=== PATIENT | male | born 1980 | race Caucasian/White ===

== ENCOUNTER 2017-10-02 02:29 | Inpatient (IN) | payer SELFPAY ==
[~2017-10-02] VITALS: Ht 190.5 cm; Wt 139.0 kg
[2017-10-02] VITALS (7 sets, daily range): BP systolic 160–194; BP diastolic 74–87; PULSE 78–96; RESP 18–20; TEMP 97.1–100.7; O2SAT 96–97
[~2017-10-02 02:29] MED LIST: CLIN1CAP5 PO; GLUC10TA3 PO; HUMSS SQ; LANTUS2P SC; LISI-363 PO; LOPI600T PO; METF-324 PO; MUPI2%T TOP; SM A81CH CHEW; TRAM50 PO
[2017-10-02] MEDS ORDERED: CLINDAMYCIN INJ 900 MG in SODIUM CHLORIDE 0.9% INJ 100 ML IV ONE (04:15)
[2017-10-02] MEDS ORDERED: ACETAMINOPHEN 325 MG TAB PO ONE (04:15)
[2017-10-02] MEDS ORDERED: KETOROLAC TROMETHAMINE 30 MG/ML (IVP) VIAL IV PUSH ONE (04:15)
[2017-10-02] MEDS ORDERED: SODIUM CHLOR 0.9% 1000 ML INJ 1,000 ML IV ONE (04:15)
[2017-10-02 04:35] LABS: AUTOMATED NEUTROPHIL # 5.7 TH/MM3 (1.8-7.7); BASOPHIL # 0.4 TH/MM3 (0-0.2); BASOPHIL % 4.5 % (0.0-2.0); EOSINOPHIL # 0.1 TH/MM3 (0-0.4); EOSINOPHIL % 1.1 % (0.0-4.0); HEMATOCRIT 42.3 % (39.0-51.0); HEMOGLOBIN 14.5 GM/DL (13.0-17.0); LYMPH % 14.5 % (9.0-44.0); LYMPHOCYTE # 1.1 TH/MM3 (1.0-4.8); MEAN CELL VOLUME 79.8 FL (80.0-100.0); MEAN CORPUSCULAR HEMOGLOBIN 27.4 PG (27.0-34.0); MEAN CORPUSCULAR HGB CONC 34.3 % (32.0-36.0); MEAN PLATELET VOLUME 8.2 FL (7.0-11.0); MONO % 6.7 % (0.0-8.0); MONOCYTE # 0.5 TH/MM3 (0-0.9); NEUT % 73.2 % (16.0-70.0); PLATELET COUNT 268 TH/MM3 (150-450); WHITE BLOOD COUNT 7.8 TH/MM3 (4.0-11.0)
[2017-10-02 04:42] LABS: BILIRUBIN, URINE NEG (NEG); BLOOD, URINE TRACE (NEG); GLUCOSE,URINE 1000 OR GREATER mg/dL (NEG); KETONE, URINE 80 OR GREATER mg/dL (NEG); NITRITE,URINE NEG (NEG); PH, URINE 5.5 (5.0-8.5); URINE COLOR YELLOW (YELLW/STRAW); URINE LEUKOCYTE ESTERASE NEG (NEG)
[2017-10-02 04:53] LABS: RBC, URINE 0-3 /hpf (0-3); SQUAMOUS EPITHELIAL CELL URINE 0-5 /hpf (0-5); WBC, URINE 0-2 /hpf (0-5)
[2017-10-02 05:38] LABS: BICARBONATE 23.8 MEQ/L (21.0-32.0); CALCIUM 8.7 MG/DL (8.5-10.1); CREATININE 0.78 MG/DL (0.60-1.30)
--- NOTE | 2017-10-02 05:38 | PD ---
HPI Chief Complaint: Skin Problem Time Seen by Provider: 04:02 Travel History International Travel<30 days: No Contact w/Intl Traveler<30days: No Traveled to known affect area: No History of Present Illness HPI 37-year-old male presents to the emergency department for 4 days of redness and swelling of the left upper extremity. Patient states he has had drainage from the left lower forearm 2 days. Patient thinks he has felt warm but has not had chills. Patient has history of diabetes. Patient has not been on medication for several months. Patient has had no nausea vomiting. Patient has not noticed any axillary tenderness or lymphadenopathy. Patient has multiple areas over his skin that show pustules and small scabbed areas associated with hair follicles. Patient denies any puncture wound. Patient denies injecting anything in the forearm. Patient rates pain at 10/10. Patient notes to palpation of the arm or touching the wound site worsens pain patient states he cannot identify alleviating factors. Patient has been covering the sites with Band-Aids and today when he pulled the Band-Aid off he noted some drainage from the site. Patient decided to come to the emergency room at that time. [facility] Past Medical History Narrative Medical Hypertension diabetes recurrent abscesses cellulitis pancreatitis MRSA; nursing notes reviewed Arthritis: No Asthma: No Heart Rhythm Problems: No Cancer: No Cardiovascular Problems: Yes (HTN) High Cholesterol: No Chest Pain: No Congestive Heart Failure: No COPD: No Cerebrovascular Accident: No Diabetes: Yes Patient Takes Glucophage: No Diminished Hearing: No GERD: Yes Headaches: Yes (NEW) Hepatitis: No Hiatal Hernia: No Hypertension: Yes Immune Disorder: No Kidney Stones: No Musculoskeletal: Yes (MRSA) Psychiatric: No Respiratory: Yes (SINUS TROUBLES) Immunizations Current: No Migraines: No Myocardial Infarction: No Renal Failure: No Seizures: No Sleep Apnea: No Ulcer: No Tetanus Vaccination: > 5 Years Past Surgical History Surgical History: No Previous Surgery Abdominal Surgery: No Appendectomy: No Cardiac Surgery: No Cholecystectomy: No Ear Surgery: No Endocrine Surgery: No Eye Surgery: No Genitourinary Surgery: No Gynecologic Surgery: No Oral Surgery: No Thoracic Surgery: No Social History Alcohol Use: Yes Tobacco Use: No Substance Use: No Allergies-Medications (Allergen,Severity, Reaction): Coded Allergies: hydromorphone (Unverified Allergy, Severe, Headache, 12/21/16) PER PT "IT CAUSES A MARCHING BAND HEADACHE." *MDRO Multi-Drug Resistant Organism (Verified Allergy, Unknown, 05/21/14) MRSA 05/2013 Reported Meds & Prescriptions Reported Meds & Active Scripts Active Reported Humalog (Insulin Human Lispro) 100 Unit/Ml Inj 60 Units SQ BIDAC Lantus (Insulin Glargine) 100 Units/Ml Inj 90 Unit SC HS Lopid (Gemfibrozil) 600 Mg Tab 600 Mg PO BIDAC Lisinopril 20 mg (Lisinopril) 20 Mg Tab 20 Mg PO BID Aspirin 81 Mg Tab 81 Mg CHEW DAILY Glipizide 10 Mg Tab 10 Mg PO BID Metformin ER 24 HR (Metformin HCl) 1,000 Mg Tab 1,000 Mg PO BID Start again on 02/10/2013 at 5 pm. Narrative Medication (NOT TAKING; OUT OF ALL MEDS) Review of Systems Except as stated in HPI: all other systems reviewed are Neg General / Constitutional: No: Fever, Chills HENT: No: Congestion Cardiovascular: No: Chest Pain or Discomfort Respiratory: No: Shortness of Breath Gastrointestinal: No: Vomiting, Abdominal Pain Genitourinary: Positive: Frequency, No: Dysuria Musculoskeletal: Positive: Pain (left FA), No: Myalgias, Arthralgias Neurologic: No: Weakness, Dizziness Psychiatric: No: Anxiety Endocrine: Positive: Polyuria, Polydipsia Hematologic/Lymphatic: No: Lymph Node Enlargement Physical Exam Narrative GENERAL: Well-developed well-nourished male no acute distress no respiratory distress SKIN: Warm and dry. HEAD: Normocephalic. EYES: No scleral icterus. No injection or drainage. NECK: Supple, trachea midline. No JVD or lymphadenopathy. CARDIOVASCULAR: Regular rate and rhythm without murmurs, gallops, or rubs. RESPIRATORY: Breath sounds equal bilaterally. No accessory muscle use. GASTROINTESTINAL: Abdomen soft, non-tender, nondistended. MUSCULOSKELETAL: No cyanosis, or edema. Attention left upper extremity distal forearm volar aspect area of erythema 7 cm x 7 cm with central induration 2 cm x 1 cm in central cavitary lesion with copious purulent drainage. Distal extremities neurovascular tendon intact capillary refill is less than 2 seconds BACK: Nontender without obvious deformity. No CVA tenderness. Data Data Last Documented VS Vital Signs Date Time Temp Pulse Resp B/P (MAP) Pulse Ox O2 Delivery O2 Flow Rate FiO2 10/02/17 05:24 99.3 96 18 194/87 (122) 96 Room Air Orders Orders Basic Metabolic Panel (Bmp) (10/02/17 04:02) Complete Blood Count With Diff (10/02/17 04:02) Blood Culture (10/02/17 04:02) Wound Culture And Gram Stain (10/02/17 04:02) Iv Access Insert/Monitor (10/02/17 04:02) Wound Care (10/02/17 04:02) Clindamycin Inj (Cleocin Inj) (10/02/17 04:15) Sodium Chlor 0.9% 1000 Ml Inj (Ns 1000 M (10/02/17 04:15) Beta Hydroxybutyrate (Acetone) (10/02/17 04:02) Urinalysis - C+S If Indicated (10/02/17 04:02) Acetaminophen (Tylenol) (10/02/17 04:15) Ketorolac Inj (Toradol Inj) (10/02/17 04:15) Clonidine (Catapres) (10/02/17 06:00) Insulin Human Regular Inj (Novolin R Inj (10/02/17 06:00) Blood Glucose (10/02/17 05:49) Lidocaine Pf 1% Inj (Xylocaine-Mpf 1% In (10/02/17 06:00) Lidocaine Pf 1% Inj (Xylocaine-Mpf 1% In (10/02/17 06:01) Clindamycin 900 Mg/Ns Premix (Cleocin 90 (10/02/17 14:00) Ceftriaxone Inj (Rocephin Inj) (10/02/17 08:00) Admit To Inpatient (10/02/17 ) Vital Signs (Adult) Q4H (10/02/17 06:11) Activity Oob Ad Renu (10/02/17 06:11) Gymnasium [employer] / Telemetry .CONTINUOUS (10/02/17 06:11) Intake + Output KIERSTEN.QSHIFT (10/02/17 06:11) Diet 1800 Ada Cons Carb (10/02/17 Breakfast) Sodium Chlor 0.9% 1000 Ml Inj (Ns 1000 M (10/02/17 06:11) Sodium Chloride 0.9% Flush (Ns Flush) (10/02/17 06:15) Sodium Chloride 0.9% Flush (Ns Flush) (10/02/17 09:00) Comprehensive Metabolic Panel (10/03/17 06:00) Complete Blood Count With Diff (10/03/17 06:00) Scd Bilateral/Knee High KIERSTEN.BID (10/02/17 06:11) Billy Bilateral/Knee High KIERSTEN.QSHIFT (10/02/17 07:00) Acetaminophen (Tylenol) (10/02/17 06:15) Acetamin-Hydrocod 325-5 Mg (Rifton 5-325 (10/02/17 06:15) Acetamin-Hydrocod 325-10 Mg ([place] 10-32 (10/02/17 06:15) Docusate Sodium-Senna (Ivana-Colace) (10/02/17 09:00) Magnesium Hydroxide Liq (Milk Of Magnesi (10/02/17 06:15) Sennosides (Senokot) (10/02/17 06:15) Bisacodyl Supp (Dulcolax Supp) (10/02/17 06:15) Lactulose Liq (Lactulose Liq) (10/02/17 06:15) Inpatient Certification (10/02/17 ) Bedside Glucose KIERSTEN.CSUGAR (10/02/17 06:11) Blood Glucose Goal (Criteria) (10/02/17 06:11) Hypoglycemia 70 Mg/Dl Or < (10/02/17 06:11) Notify Dr: Other (10/02/17 06:11) Dextrose 50% In Jose G (Vial) Inj (D50w (Vi (10/02/17 06:15) Glucagon Inj (Glucagon Inj) (10/02/17 06:15) Insulin Aspart Supplemtl Scale (Novolog (10/02/17 08:00) Metoprolol Tartrate (Lopressor) (10/02/17 06:15) Admit Order (Ed Use Only) (10/02/17 ) Vital Signs (Adult) Q4H (10/02/17 06:19) Diet 1999 Ada Cons Carb (10/02/17 Breakfast) Activity Oob With Assistance (10/02/17 06:19) Notify Dr: Other (10/02/17 06:19) Labs Laboratory Tests Test 10/02/17 04:00 10/02/17 04:25 White Blood Count 7.8 TH/MM3 Red Blood Count 5.30 MIL/MM3 Hemoglobin 14.5 GM/DL Hematocrit 42.3 % Mean Corpuscular Volume 79.8 FL Mean Corpuscular Hemoglobin 27.4 PG Mean Corpuscular Hemoglobin Concent 34.3 % Red Cell Distribution Width 12.0 % Platelet Count 268 TH/MM3 Mean Platelet Volume 8.2 FL Neutrophils (%) (Auto) 73.2 % Lymphocytes (%) (Auto) 14.5 % Monocytes (%) (Auto) 6.7 % Eosinophils (%) (Auto) 1.1 % Basophils (%) (Auto) 4.5 % Neutrophils # (Auto) 5.7 TH/MM3 Lymphocytes # (Auto) 1.1 TH/MM3 Monocytes # (Auto) 0.5 TH/MM3 Eosinophils # (Auto) 0.1 TH/MM3 Basophils # (Auto) 0.4 TH/MM3 CBC Comment AUTO DIFF Differential Comment AUTO DIFF CONFIRMED Platelet Estimate NORMAL Platelet Morphology Comment NORMAL Blood Urea Nitrogen 13 MG/DL Creatinine 0.78 MG/DL Random Glucose 362 MG/DL Calcium Level 8.7 MG/DL Sodium Level 134 MEQ/L Potassium Level 4.0 MEQ/L Chloride Level 97 MEQ/L Carbon Dioxide Level 23.8 MEQ/L Anion Gap 13 MEQ/L Estimat Glomerular Filtration Rate 111 ML/MIN B-Hydroxybutyrate 1.94 MMOL/L Urine Color YELLOW Urine Turbidity CLEAR Urine pH 5.5 Urine Specific [place] 1.015 Urine Protein NEG mg/dL Urine Glucose (UA) 1000 OR GREATER mg/dL Urine Ketones 80 OR GREATER mg/dL Urine Occult Blood TRACE Urine Nitrite NEG Urine Bilirubin NEG Urine Urobilinogen 0.2 MG/DL Urine Leukocyte Esterase NEG Urine RBC 0-3 /hpf Urine WBC 0-2 /hpf Urine Squamous Epithelial Cells 0-5 /hpf Urine Bacteria NONE /hpf Microscopic Urinalysis Comment CULT NOT INDICATED MDM Medical Decision Making Medical Screen Exam Complete: Yes Emergency Medical Condition: Yes Medical Record Reviewed: Yes Interpretation(s) CBC & BMP Diagram 10/02/17 04:00 Calcium Level 8.7 Vital Signs Date Time Temp Pulse Resp B/P (MAP) Pulse Ox O2 Delivery O2 Flow Rate FiO2 10/02/17 05:24 99.3 96 18 194/87 (122) 96 Room Air 5/27/18 03:51 90 10/02/17 03:36 100.7 90 18 185/84 (117) 97 10/02/17 02:36 100.7 90 18 185/87 (119) 97 BHB: 1.94, elevated UA: positive glucose positive ketones Differential Diagnosis Cellulitis abscess tenosynovitis compartment syndrome uncontrolled diabetes DKA Narrative Course IV access obtained specimens collected and sent for resulting patient administered clindamycin 900 mg IV piggyback Toradol 30 mg IV patient had blood cultures obtained lactic acid collected and specimen for wound culture and sensitivity obtained. CBC is automated differential grossly normal range metabolic panel remarkable for glucose of 362 patient has received IV fluid bolus will be given insulin regular 6 units IV 1 dose also beta hydroxybutyric acid is elevated at 1.94 however bicarb is in normal range and anion gap is not elevated Patient resting comfortably discussed with patient I&D of abscess site to which he agrees after discussing risk benefit from verbal consent. discussed with [facility] service -- admit Procedures Procedure Narrative After the risks and benefits were discussed the following procedure was performed: INCISION AND DRAINAGE OF ABSCESS: The area was prepped and was sterilely draped. A subcutaneous wheal of 1 % Xylocaine with a total number 3 mL was used to anesthetize the area. The area was properly anesthetized. A number 11 scalpel was used to make a 1 -cm incision across the area of the abscess. Cultures were obtained. The abscess was drained an irrigated with normal saline. Quarter inch iodoform packing was placed in the wound. Sterile dressing applied. Patient advised to have packing removed in two days. Sepsis Criteria SIRS Criteria (2 or more): Heart rate over 90 Sepsis Criteria (SIRS+source): Infect source susp/known (LUE abscess/cellulitis ) Physician Communication Physician Communication discussed with Dr Carranza --admit to her service Diagnosis Primary Impression: Cellulitis of left upper extremity Additional Impressions: Abscess of forearm, left Poorly controlled diabetes mellitus Admitting Information Admitting Physician Requests: Admit Alie Salamanca MD October 02, 2017 05:38
[2017-10-02] MEDS ORDERED: LIDOCAINE HCL 1% PF 10 ML VIAL INFIL ONE (06:00)
[2017-10-02] MEDS ORDERED: INSULIN HUMAN REGULAR 1,000 UNITS/10 ML VIAL IV PUSH ONE (06:00)
[2017-10-02] MEDS ORDERED: cloNIDine HCL 0.1 MG TAB PO ONE (06:00)
[2017-10-02] MEDS ORDERED: LIDOCAINE HCL 1% PF 10 ML VIAL ONE (06:01)
[2017-10-02] MEDS ORDERED: SODIUM CHLOR 0.9% 1000 ML INJ 1,000 ML IV SCH (06:11)
[2017-10-02] MEDS ORDERED: LACTULOSE SYRUP 20 GM/30 ML CUP PO PRN (06:15)
[2017-10-02] MEDS ORDERED: DEXTROSE 50% IN WATER 50 ML VIAL(D50) IV PUSH PRN (06:15)
[2017-10-02] MEDS ORDERED: ACETAMINOPHEN/HYDROcodone 325 MG/5 MG TAB PO PRN (06:15)
[2017-10-02] MEDS ORDERED: SODIUM CHLORIDE 0.9% FLUSH 10 ML FLUSH IV FLUSH PRN (06:15)
[2017-10-02] MEDS ORDERED: SENNOSIDES 8.6 MG TAB PO PRN (06:15)
[2017-10-02] MEDS ORDERED: METOPROLOL TARTRATE 50 MG TAB PO ONE (06:15)
[2017-10-02] MEDS ORDERED: MAGNESIUM HYDROXIDE SUSP 30 ML CUP PO PRN (06:15)
[2017-10-02] MEDS ORDERED: ACETAMINOPHEN/HYDROcodone 325 MG/10 MG TAB PO PRN (06:15)
[2017-10-02] MEDS ORDERED: GLUCAGON 1 MG/ML VIAL OTHER PRN (06:15)
[2017-10-02] MEDS ORDERED: BISACODYL 10 MG SUPP RECTAL PRN (06:15)
[2017-10-02] MEDS ORDERED: ACETAMINOPHEN 325 MG TAB PO PRN (06:15)
[2017-10-02] MEDS ORDERED: cefTRIAXone INJ 1,000 MG in SODIUM CHLORIDE 0.9% INJ 100 ML IV SCH (08:00)
[2017-10-02] MEDS ORDERED: DOCUSATE SODIUM 50 MG/SENNA 8.6 MG TAB PO SCH (09:00)
[2017-10-02] MEDS ORDERED: SODIUM CHLORIDE 0.9% FLUSH 10 ML FLUSH IV FLUSH SCH (09:00)
[2017-10-02] MEDS: INSULIN ASPART SUPPLEMENTAL SCALE SQ SCH ×2 (09:41→12:00)
--- NOTE | 2017-10-02 10:35 | HHI.HP ---
[facility] Primary Care Physician Admission Diagnosis cellulitis abscess/ L UE; DM; sirs Diagnoses: (1) Cellulitis of left upper extremity Diagnosis: Principal (2) Poorly controlled diabetes mellitus Diagnosis: Principal (3) Hypertension Diagnosis: Principal Chief Complaint: Left arm swelling and pain Travel History International Travel<30 Days: No Contact w/Intl Traveler <30 Da: No Traveled to Known Affected Are: No History of Present Illness Written by Rigoberto Merino, acting as scribe for Dr. Valdovinos on 10/02/17 at 10: 33. 37-year-old male with known history of hypertension, hyperlipidemia, diabetes who is not compliant with his medications for the last 3-1/2 month because of financial/insurance reasons. Patient just moved back down here to take care of his father who is not doing well and he has been unsuccessful in getting Medicaid in [place] and he is not taking any medications for 3-1/2 months. On Tuesday of this week he started noticing a sore on his left forearm just above his wrist in which he does not know how it developed. Denies any insect bites, hitting it on anything, and he scratches or wounds. It progressively got worse and started draining. When his hand got severely edematous and he could barely move it he came to the emergency department for evaluation. ER physician did do incision and drainage. Since then the patient states that it is significantly improved. Patient denies any fever, chills, abdominal pain, nausea, vomiting, chest pain, shortness of breath. It was recommended by the ER physician the patient be observed in the hospital for further evaluation and management. Review of Systems Integumentary: COMPLAINS OF: Abnormal pigmentation Except as stated in HPI: all other systems reviewed are Neg Past Family Social History Past Medical History Hypertension Hyperlipidemia Diabetes Past Surgical History Patient denies any previous surgeries Reported Medications Patient is not taking any medications for 3-1/2 months But previously he was on Humalog (Insulin Human Lispro) 100 Unit/Ml Inj 60 Units SQ BIDAC Lantus (Insulin Glargine) 100 Units/Ml Inj 90 Unit SC HS Lopid (Gemfibrozil) 600 Mg Tab 600 Mg PO BIDAC Lisinopril 20 mg (Lisinopril) 20 Mg Tab 20 Mg PO BID Aspirin 81 Mg Tab 81 Mg CHEW DAILY Glipizide 10 Mg Tab 10 Mg PO BID Metformin ER 24 HR (Metformin HCl) 1,000 Mg Tab 1,000 Mg PO BID Start again on 02/10/2013 at 5 pm. Allergies: Coded Allergies: hydromorphone (Unverified Allergy, Severe, Headache, 12/21/16) PER PT "IT CAUSES A MARCHING BAND HEADACHE." *MDRO Multi-Drug Resistant Organism (Verified Allergy, Unknown, 05/21/14) MRSA 05/2013 Family History Family history was reviewed and highly significant for diabetes Social History Patient denies any tobacco or illicit drugs. Does drink alcohol occasionally Physical Exam Vital Signs Vital Signs Date Time Temp Pulse Resp B/P (MAP) Pulse Ox O2 Delivery O2 Flow Rate FiO2 10/02/17 07:47 97.1 85 20 168/77 (107) 97 10/02/17 06:37 99.1 98 20 187/78 (114) 95 10/02/17 05:24 99.3 96 18 194/87 (122) 96 Room Air 10/02/17 03:51 90 10/02/17 03:36 100.7 90 18 185/84 (117) 97 10/02/17 02:36 100.7 90 18 185/87 (119) 97 Physical Exam GENERAL: Well-developed, well-nourished, in no acute distress. alert and orientated HEENT: Head is normocephalic without any lesions or masses noted. Facial features are symmetric. Eyes: Pupils equal round reactive to light. Extraocular muscles are intact. Conjunctivae were clear. Oropharyngeal: Pharynx without any erythema edema. Tongue is midline without deviation. Buccal mucosa is moist without any masses or lesions NECK: Supple without any masses. Trachea midline no deviation. No JVD, no bruits are appreciated CARDIAC: Regular rhythm, regular rate. S1/S2 are heard. No murmurs gallops or rubs. LUNGS: Clear to auscultation bilaterally. No wheeze, rhonchi or rales. No use of accessory muscles on inspiration or expiration. ABDOMEN: Soft, nontender. Nondistended. Bowel sounds heard in all 4 quadrants. No organomegaly or masses. Negative rebound, negative guarding EXTREMITIES: No edema, pulses are equal bilaterally. No cyanosis or clubbing NEUROLOGY: Mood and affect appear appropriate. Cranial nerves II through XII grossly intact. Muscle strength 5/5 in upper and lower extremities bilaterally. Deep tendon reflexes are 2+ in upper and lower extremities bilaterally. LEFT UPPER EXTREMITY: The forearm just above the wrist does have a area after incision and drainage of a wound just proximal from the wrist with packing noted. Patient's hand is edematous as compared to his right. He does have some mild erythema noted around the incision area, minimal pink coloration extending approximately 2 cm. Patient indicates that his hand is much improved as compared to yesterday Laboratory Laboratory Tests Test 10/02/17 04:00 10/02/17 04:25 White Blood Count 7.8 Red Blood Count 5.30 Hemoglobin 14.5 Hematocrit 42.3 Mean Corpuscular Volume 79.8 Mean Corpuscular Hemoglobin 27.4 Mean Corpuscular Hemoglobin Concent 34.3 Red Cell Distribution Width 12.0 Platelet Count 268 Mean Platelet Volume 8.2 Neutrophils (%) (Auto) 73.2 Lymphocytes (%) (Auto) 14.5 Monocytes (%) (Auto) 6.7 Eosinophils (%) (Auto) 1.1 Basophils (%) (Auto) 4.5 Neutrophils # (Auto) 5.7 Lymphocytes # (Auto) 1.1 Monocytes # (Auto) 0.5 Eosinophils # (Auto) 0.1 Basophils # (Auto) 0.4 CBC Comment AUTO DIFF Differential Comment AUTO DIFF CONFIRMED Platelet Estimate NORMAL Platelet Morphology Comment NORMAL Blood Urea Nitrogen 13 Creatinine 0.78 Random Glucose 362 Calcium Level 8.7 Sodium Level 134 Potassium Level 4.0 Chloride Level 97 Carbon Dioxide Level 23.8 Anion Gap 13 Estimat Glomerular Filtration Rate 111 B-Hydroxybutyrate 1.94 Urine Color YELLOW Urine Turbidity CLEAR Urine pH 5.5 Urine Specific [place] 1.015 Urine Protein NEG Urine Glucose (UA) 1000 OR GREATER Urine Ketones 80 OR GREATER Urine Occult Blood TRACE Urine Nitrite NEG Urine Bilirubin NEG Urine Urobilinogen 0.2 Urine Leukocyte Esterase NEG Urine RBC 0-3 Urine WBC 0-2 Urine Squamous Epithelial Cells 0-5 Urine Bacteria NONE Microscopic Urinalysis Comment CULT NOT INDICATED Date/Time Source Procedure Growth Status 10/02/17 04:15 Blood Peripheral Aerobic Blood Culture Pending Received 10/02/17 04:15 Blood Peripheral Anaerobic Blood Culture Pending Received 10/02/17 04:00 Wound Arm Gram Stain Pending Received 10/02/17 04:00 Wound Arm Wound Culture Pending Received Result Diagram: 10/02/1739910/02/17399 Caprinkayla VTE Risk Assessment Shauni VTE Risk Assessment: No/Low Risk (score <= 1) Caprini Risk Assessment Model Point Value = 1 Point Value = 2 Point Value = 3 Point Value = 5 Age 41-60 Minor surgery BMI > 25 kg/m2 Swollen legs Varicose veins or History of unexplained or recurrent spontaneous Oral contraceptives or hormone replacement Sepsis (< 1 month) Serious lung disease, including pneumonia (< 1 month) Abnormal pulmonary function Acute myocardial infarction Congestive heart failure (< 1 month) History of inflammatory bowel disease Medical patient at bed rest Age 61-74 Arthroscopic surgery Major open surgery (> 45 min) Laparoscopic surgery (> 45 min) Malignancy Confined to bed (> 72 hours) Immobilizing plaster cast Central venous access Age >= 75 History of VTE Family history of VTE Factor V Leiden Prothrombin [id number] Lupus anticoagulant Anticardiolipin antibodies Elevated serum homocysteine Heparin-induced thrombocytopenia Other congenital or acquired thrombophilia Stroke (< 1 month) Elective arthroplasty Hip, pelvis, or leg fracture Acute spinal cord injury (< 1 month) Prophylaxis Regimen Total Risk Factor Score Risk Level Prophylaxis Regimen 0-1 Low Early ambulation 2 Moderate Order ONE of the following: *Sequential Compression Device (SCD) *Heparin 5000 units SQ BID 3-4 Higher Order ONE of the following medications: *Heparin 5000 units SQ TID *Enoxaparin/Lovenox 40 mg SQ daily (WT < 150 kg, CrCl > 30 mL/min) *Enoxaparin/Lovenox 30 mg SQ daily (WT < 150 kg, CrCl > 10-29 mL/min) *Enoxaparin/Lovenox 30 mg SQ BID (WT < 150 kg, CrCl > 30 mL/min) AND/OR *Sequential Compression Device (SCD) 5 or more Highest Order ONE of the following medications: *Heparin 5000 units SQ TID (Preferred with Epidurals) *Enoxaparin/Lovenox 40 mg SQ daily (WT < 150 kg, CrCl > 30 mL/min) *Enoxaparin/Lovenox 30 mg SQ daily (WT < 150 kg, CrCl > 10-29 mL/min) *Enoxaparin/Lovenox 30 mg SQ BID (WT < 150 kg, CrCl > 30 mL/min) AND *Sequential Compression Device (SCD) Assessment and Plan Problem List: (1) Cellulitis of left upper extremity ICD Code: L03.114 - Cellulitis of left upper limb Status: Acute (2) Poorly controlled diabetes mellitus ICD Code: E11.65 - Type 2 diabetes mellitus with hyperglycemia Status: Acute Assessment and Plan Cellulitis/abscess of the left forearm, significant improvement -Patient has undergone appropriate management with incision and drainage done by the emergency room physician -Patient to continue wound care -Patient started on Rocephin and clindamycin IV Diabetes, uncontrolled -Secondary to noncompliance due to financial/insurance reasons -Diabetic diet -Accu-Cheks with sliding scale insulin -We will consult case management to help arrange patient care assistants and blue card Hypertension, uncontrolled -Start lisinopril 20 mg daily DVT prevention -Low risk, early ambulation Discharge disposition Discharge home in stable condition Activity: Ad leelee. Diet: Diabetic diet Medication per medication reconciliation Follow-up with primary medical doctor in 1 week This note was transcribed by lizz Merino. I, Dr. Sukumar Valdovinos personally performed the history, physical exam, and medical decision making; and confirmed the accuracy of the information in the transcribed note. Authenticated by Dr. Sukumar Valdovinos on 10/02/17 at 10:33. Code Status Full code Discussed Condition With Patient Physician Certification 2 Midnight Certification Type: Admission for Inpatient Services Order for Inpatient Services The services are ordered in accordance with Medicare regulations or non- Medicare payer requirements, as applicable. In the case of services not specified as inpatient-only, they are appropriately provided as inpatient services in accordance with the 2-midnight benchmark. Estimated LOS (days): 1 days is the estimated time the patient will need to remain in the hospital, assuming treatment plan goals are met and no additional complications. Post-Hospital Plan: Not yet determined Rigoberto Merino October 02, 2017 10:35 Sukumar Valdovinos MD October 02, 2017 10:35
--- NOTE | 2017-10-02 11:17 | HHI.DCPOC ---
Discharge Care Plan Diagnosis: (1) Cellulitis of left upper extremity (2) Poorly controlled diabetes mellitus (3) Hypertension Goals to Promote Your Health * To prevent worsening of your condition and complications * To maintain your health at the optimal level Directions to Meet Your Goals Take your medications as prescribed Follow your dietary instruction Follow activity as directed Keep your appointments as scheduled Take your immunizations and boosters as scheduled If your symptoms worsen call your PCP, if no PCP go to Urgent Care Center or Emergency Room Smoking is Dangerous to Your Health. Avoid second hand smoke Call the 24-hour hour crisis hotline for domestic abuse at Rigoberto Merino October 02, 2017 11:17
[2017-10-02] MEDS ORDERED: HYDR-3516 PO (11:22)
[2017-10-02] MEDS ORDERED: ASPI81 CHEW (11:22)
[2017-10-02] MEDS ORDERED: GLIP10TA6 PO (11:22)
[2017-10-02] MEDS ORDERED: GEMF600 PO (11:22)
[2017-10-02] MEDS ORDERED: LISI-515 PO (11:22)
[2017-10-02] MEDS ORDERED: METFORMIN PO (11:22)
[2017-10-02] MEDS ORDERED: BACT800T5 PO (11:25)
[2017-10-02] MEDS ORDERED: ASPIRIN 81 MG CHEW TAB CHEW SCH (11:30)
[2017-10-02] MEDS ORDERED: LISINOPRIL 20 MG TAB PO SCH (11:30)
[2017-10-02] MEDS ORDERED: GEMFIBROZIL 600 MG TAB PO SCH (11:30)
[2017-10-02] MEDS ORDERED: glipiZIDE 10 MG TAB PO SCH (11:30)
[2017-10-02] MEDS ORDERED: metFORMIN HCL 500 MG TAB PO SCH (11:30)
[2017-10-02] MEDS ORDERED: CEPH-460 PO (11:34)
[2017-10-02] MEDS ORDERED: CLINDAMYCIN 900 MG/NS PREMIX 50 ML IV SCH (14:00)
== END 2017-10-02 17:07 | disposition home or self-care (01) | DRG 603 ==
LOC: PHED 02:29 → PHEDA 06:21 → PH3A 06:50
PROVIDERS: ADMIT Hospitalist; ATTEND Hospitalist
PROC: 0H9EXZZ Drainage of Left Lower Arm Skin, External Approach (ICD-10-PCS; principal; 2017-10-02)
DX: L02.414 Cutaneous abscess of left upper limb (principal); E11.65 Type 2 diabetes mellitus with hyperglycemia; I10 Essential (primary) hypertension; L03.114 Cellulitis of left upper limb; K21.9 Gastro-esophageal reflux disease without esophagitis; E78.5 Hyperlipidemia, unspecified; Z79.4 Long term (current) use of insulin; Z83.3 Family history of diabetes mellitus; Z86.14 Personal history of Methicillin resistant Staphylococcus aureus infection; Z88.5 Allergy status to narcotic agent; Z91.120 Patient's intentional underdosing of medication regimen due to financial hardship
CPT/HCPCS: 10060; 80048; 81001; 82010; 82948; 85025; 86403; 87040; 87070; 87185; 87186; 87205; 96365; 96375; J0696; J1815; J1885; J7030